=== PATIENT | male | born 1980 | race Caucasian/White ===

== ENCOUNTER 2017-05-20 12:34 | Emergency (ER) | payer MEDICAID, SELFPAY ==
[2017-05-20 13:37] VITALS: BP 174/94; PULSE 68; RESP 20; TEMP 36.6; O2SAT 99; BMI 29.8
--- NOTE | 2017-05-20 13:42 | HMH.EDUTC ---
[facility] [place] Disposition Clinical Impression: Cellulitis of axilla, left Disposition: Home, Self-Care Condition on Discharge: Good Instructions: DI for Cellulitis -- Adult Additional Instructions: * Start antibiotic(s) immediately and be sure to take as ordered for the FULL length of time although you should start to see improvement over the next 24-48 hours. * Monitor closely. Outlined redness so that you can monitor easier. FU immediately for new or worsening symptoms ( including but not limited to redness, swelling, red streaking, fever, chills). * Warm compresses 15 min 3-4 times a day * never squeeze or pop these on your own. Seek immediate medical attention next time these occur. * Monitor Temp. Seek treatment if fever develops. * For pain/inflammation: Tylenol every 4 hours as needed no more then 5 times a day or 4000mg in 24 hours and/or ibuprofen every 6 hours as needed no more then 3200mg in 24 hours (as long as your primary care doctor has told you that it is ok to take both) for aches/pain. Prescriptions: Sulfamethoxazole/Trimethoprim [Bactrim DS tablet] 1 each PO BID #20 tab Referrals: Jonas James MD [Primary Care Provider] - ( FU immediately for new or worsening symptoms ( including but not limited to redness, swelling, red streaking, fever, chills) or if not resolved with antibiotic) Time of Disposition: 14:04 Medical Decision Making - Jcarlos Inquiry Pt receiving controlled substance: No Vital Signs: 05/20/17 13:37 05/20/17 14:05 Temperature 97.9 F 97.9 F Temperature Source Temporal Artery Scan Temporal Artery Scan Pulse Rate 68 Pulse Rate [Brachial] 68 Respiratory Rate 20 20 Blood Pressure 174/94 Blood Pressure [Right Arm] 174/94 Blood Pressure Mean [Right Arm] 120 Blood Pressure Source [Right Arm] Automatic Cuff Blood Pressure Position Sitting Blood Pressure Position [Right Arm] Sitting 02 Sat by Pulse Oximetry 99 [facility] [place] HPI - General Stated complaint: knot under left arm Time Seen by Provider: 05/20/17 13:42 Mode of Arrival: Ambulatory Source of Information: Patient Limitations: No Limitations Description of Symptoms (Recalled from Triage Doc. by RN): FEELS A KNOT ONT HE LEFT SIDE OF NECK THAT IS SORE AND TENDER FOR 4 DAYS HEENT Symptoms (Recalled from RN notes): Yes Resp Symptoms (Recalled from RN notes): No Skin Symptoms (Recalled from RN notes): No MS Symptoms (Recalled from RN notes): No Functional Status (Recalled from RN notes): NA - History of Present Illness Provider Complaint: c/o red sore left axilla. First noticed weeks ago . Looked like a pimple. Squeezed it. Thick unknown color drainage. Didn't think anything else of it until 4 days, mild tenderness. Over the last 4 days, more red and more tender. no swelling or drainage. No fever, aches, chills. No other treatment. - Related Data Previous Rx's Medication Instructions Recorded Sulfamethoxazole/Trimethoprim 1 each PO BID #20 tab 05/20/17 [Bactrim DS tablet] - Worker's Comp Is this a Worker's Comp case?: No [facility] History I have reviewed the patient's past medical history: Yes (denies PMHx) Medical History: Denies:: Diabetes Mellitus Type 1, Diabetes Mellitus Type 2, Hypertension Laterality Cases: Right: Other (wrist, screw) - Social History Alcohol Intake: never - Psychiatric History Expresses thoughts of harming self/others: None Suicide Plan Description: No Plan ROS Obtained: Yes Systems reviewed as appropriate & no additional complaints - Constitutional Constitutional: Reports as per HPI, Denies body ache, Denies chills, Denies fatigue, Denies fever(s), Denies poor appetite - Respiratory Respiratory: No dyspnea - Gastrointestinal Gastrointestingal: Denies: nausea, vomiting - Musculoskeletal Musculoskeletal: Denies joint pain, Denies limited range of motion, Denies muscle weakness, Denies radiating pain into limb, Denies stiffness - Integumentary/Breasts Skin/Breast: Reports as per HP
--- NOTE | 2017-05-20 14:00 | ED_ITS ---
[facility] [place] Clinical Impression: Cellulitis of axilla, left Disposition: Home, Self-Care Condition on Discharge: Good Instructions: DI for Cellulitis -- Adult Additional Instructions: * Start antibiotic(s) immediately and be sure to take as ordered for the FULL length of time although you should start to see improvement over the next 24-48 hours. * Monitor closely. Outlined redness so that you can monitor easier. FU immediately for new or worsening symptoms ( including but not limited to redness , swelling, red streaking, fever, chills). * Warm compresses 15 min 3-4 times a day * never squeeze or pop these on your own. Seek immediate medical attention next time these occur. * Monitor Temp. Seek treatment if fever develops. * For pain/inflammation: Tylenol every 4 hours as needed no more then 5 times a day or 4000mg in 24 hours and/or ibuprofen every 6 hours as needed no more then 3200mg in 24 hours (as long as your primary care doctor has told you that it is ok to take both) for aches/pain. Prescriptions: Sulfamethoxazole/Trimethoprim [Bactrim DS tablet] 1 each PO BID #20 tab Referrals: Jonas James MD [Primary Care Provider] - ( FU immediately for new or worsening symptoms ( including but not limited to redness, swelling, red streaking, fever, chills) or if not resolved with antibiotic) Time of Disposition: 14:04 Medical Decision Making - Jcarlos Inquiry Pt receiving controlled substance: No Vital Signs: 05/20/17 13:37 05/20/17 14:05 Temperature 97.9 F 97.9 F Temperature Source Temporal Artery Scan Temporal Artery Scan Pulse Rate 68 Pulse Rate [Brachial] 68 Respiratory Rate 20 20 Blood Pressure 174/94 Blood Pressure [Right Arm] 174/94 Blood Pressure Mean [Right Arm] 120 Blood Pressure Source [Right Arm] Automatic Cuff Blood Pressure Position Sitting Blood Pressure Position [Right Arm] Sitting 02 Sat by Pulse Oximetry 99 [facility] [place] - General Stated complaint: knot under left arm Time Seen by Provider: 05/20/17 13:42 Mode of Arrival: Ambulatory Source of Information: Patient Limitations: No Limitations Description of Symptoms (Recalled from Triage Doc. by RN): FEELS A KNOT ONT HE LEFT SIDE OF NECK THAT IS SORE AND TENDER FOR 4 DAYS HEENT Symptoms (Recalled from RN notes): Yes Resp Symptoms (Recalled from RN notes): No Skin Symptoms (Recalled from RN notes): No MS Symptoms (Recalled from RN notes): No Functional Status (Recalled from RN notes): NA - History of Present Illness Provider Complaint: c/o red sore left axilla. First noticed weeks ago . Looked like a pimple. Squeezed it. Thick unknown color drainage. Didn't think anything else of it until 4 days, mild tenderness. Over the last 4 days, more red and more tender. no swelling or drainage. No fever, aches, chills. No other treatment. - Related Data Previous Rx's Medication Instructions Recorded Sulfamethoxazole/Trimethoprim 1 each PO BID #20 tab 05/20/17 [Bactrim DS tablet] - Worker's Comp Is this a Worker's Comp case?: No [facility] History I have reviewed the patient's past medical history: Yes (denies PMHx) Medical History: Denies:: Diabetes Mellitus Type 1, Diabetes Mellitus Type 2, Hypertension Laterality Cases: Right: Other (wrist, screw) - Social History Alcohol Intake: never - Psychiatric History Expresses thoughts of harming self/others: None Suicide Plan Description: No Plan
[2017-05-20 14:05] VITALS: BP 174/94; PULSE 68; RESP 20; TEMP 36.6; O2SAT 99
== END 2017-05-20 14:06 | disposition home or self-care (01) ==
PROVIDERS: Emergency Provider Nurse Practitioner Family; Family Provider Family Medicine; PCP Family Medicine
DX: L03.112 Cellulitis of left axilla (principal)
CPT/HCPCS: 99201

== ENCOUNTER → 2020-11-01 18:29 | Outpatient (CLI) | payer OTHER, SELFPAY | PROVIDERS: PCP Internal Medicine Adolescent Medicine; Visit Provider Internal Medicine Adolescent Medicine | DX: G47.33 Obstructive sleep apnea (adult) (pediatric) (principal); R40.0 Somnolence; E66.9 Obesity, unspecified; Z68.31 Body mass index [BMI] 31.0-31.9, adult; G47.9 Sleep disorder, unspecified | CPT/HCPCS: 95806 ==

== ENCOUNTER → 2020-11-25 12:00 | Outpatient (CLI) | payer OTHER, SELFPAY | PROVIDERS: Visit Provider Specialist | DX: R40.0 Somnolence (principal); Z82.0 Family history of epilepsy and other diseases of the nervous system | CPT/HCPCS: 36415 ==

== ENCOUNTER 2020-12-16 17:44 | Emergency (ER) | payer OTHER, SELFPAY ==
[2020-12-16 17:56] VITALS: BP 176/92; PULSE 80; RESP 16; TEMP 37.2; O2SAT 98; BMI 32.3
--- NOTE | 2020-12-16 18:04 | HMH.EDEYEP ---
ED Disposition Clinical Impression: Corneal abrasion Qualifiers: Encounter type: initial encounter Laterality: right Qualified Code(s): S05.01XA - Injury of conjunctiva and corneal abrasion without foreign body, right eye, initial encounter Disposition: Home, Self-Care Condition on Discharge: Good Additional Instructions: Please follow-up with your primary care doctor in 3 days, please be erythromycin ointment 5 times a day while you are awake. This will help prevent infection in your eye. If you are having increased pain with moving your eye, changes in vision, increased irritation or other concerns please follow-up with your primary care doctor or return to the emergency department earlier. Referrals: Holden Meyer MD [Primary Care Provider] - - Critical Care Critical Care Time: No Attestation: On 12/16/20, the high probability of a clinically significant, sudden or life threatening deterioration of the following system(s) required my full and direct attention, intervention and personal management. The time I documented below is in addition to time spent performing reported procedures but includes the following listed in this critical care notation. Medical Decision Making - Medical Records Medical records reviewed: Yes: I reviewed the patient's medical records. - Jcarlos Inquiry Pt receiving controlled substance: No Vital Signs: 12/16/20 17:56 12/16/20 18:36 Temperature 98.9 F 98.9 F Temperature Source Oral Pulse Rate 80 Pulse Rate [Left Radial] 80 Respiratory Rate 16 16 Blood Pressure 176/92 H Blood Pressure [Right Arm] 176/92 H Blood Pressure Mean [Right Arm] 120 Blood Pressure Source [Right Arm] Automatic Cuff Blood Pressure Position [Right Arm] Sitting 02 Sat by Pulse Oximetry 98 Oxygen Delivery Method Room Air Room Air Orders (Tests/Meds): ED MEDICATIONS Discontinued Medications Generic Name Dose Route Start Last Admin Trade Name Freq PRN Reason Stop Dose Admin Erythromycin 0.5 gm 12/16/20 18:03 12/16/20 18:12 Erythromycin Base 1 Gm Oint...G. OP 12/16/20 18:04 0.5 gm ONCE ONE Administration Tetanus/Reduced Diphtheria/Acell Pertussis 0.5 ml 12/16/20 18:03 12/16/20 18:09 Tet/Diphth/Pert-Adult 0.5ml Syringe IM 12/16/20 18:04 0.5 ml .ONCE ONE Administration Medical Decision Narrative: Patient is a 40-year-old male presented emergency department chief complaint of right eye pain after a metallic foreign body. Diagnosis includes foreign body, corneal abrasion, corneal laceration, open globe, keratitis among others given the patient did not know his last tetanus shot, patient tetanus was updated, patient was given fluorescein dye into his right eye, patient did have signs consistent with an abrasion in the lower hemisphere of the eye, no obvious laceration, no open globe. Physical exam findings consistent with a small corneal abrasion, no foreign body was visualized although eyelid was stained with foreseen, then flushed sufficiently. Patient was given erythromycin ointment to place in his eye 5 times a day for the next 5 days. Eye Problem HPI - General Chief complaint: Eye Problems Stated complaint: AO 1017 FB in R eye Time Seen by Provider: 12/16/20 18:15 Mode of Arrival: Ambulatory Limitations: No Limitations Description of Symptoms (Recalled from ER Triage Doc. by RN): c/o irritation in his right eye after changing some truck runners and shaving the bolts off yesterday - History of Present Illness HPI Narrative: Patient states that he was working on a car, when he believes a piece of metal flew up and hit him in his right eye. This occurred yesterday and since then it has felt irritated, he does not scrub it is particularly painful. He denies any blurry vision, any changes in his vision, any difficulty to move his eyes from side to side although he does notice a strange almost irritating feeling. He is denying any other acute medical problems, fevers, c
[2020-12-16 18:36] VITALS: BP 176/92; PULSE 80; RESP 16; TEMP 37.2; O2SAT 98
== END 2020-12-16 18:37 | disposition home or self-care (01) ==
PROVIDERS: Emergency Provider Emergency Medicine; PCP Internal Medicine Adolescent Medicine
DX: S05.01XA Injury of conjunctiva and corneal abrasion without foreign body, right eye, initial encounter (principal); K21.9 Gastro-esophageal reflux disease without esophagitis; W22.8XXA Striking against or struck by other objects, initial encounter; Y92.89 Other specified places as the place of occurrence of the external cause; Z23 Encounter for immunization
CPT/HCPCS: 90715; 99281

== ENCOUNTER → 2021-02-18 12:44 | Outpatient (CLI) | payer OTHER, SELFPAY ==
[2021-02-18 13:10] LABS: Basophils # 0.1 K/mm3 (0-0.2); Basophils % 1.2 % (0.1-2.0); Eosinophils # 0.1 K/mm3 (0.0-0.4); Eosinophils % 1.1 % (0.1-12.0); Hematocrit 46.5 % (42.0-52.0); Hemoglobin 15.5 g/dL (14.1-18.0); Lymphocytes # 1.4 K/mm3 (0.7-4.5); Lymphocytes % 29.4 % (10-50); Mean Corpuscular HGB Conc 33.4 g/dL (31.8-35.4); Mean Corpuscular Hemoglobin 30.9 pg (27.0-31.2); Mean Corpuscular Volume 92.4 fl (80-94); Mean Platelet Volume 8.4 fl (7.4-10.4); Monocytes # 0.5 K/mm3 (0.1-1.0); Monocytes % 10.9 % (1.7-9.3); Neutrophils # 2.8 K/mm3 (1.8-7.8); Neutrophils % 57.4 % (37.0-80.0); Platelet Count 260 K/mm3 (142-424); Red Blood Count 5.03 M/mm3 (4.60-6.20); Red Cell Distribution Width 13.9 % (11.5-17.5); White Blood Count 4.8 K/mm3 (4.8-10.8)
[2021-02-18 14:30] LABS: Alanine Aminotransferase 98 U/L (12-78); Albumin Level 4.1 g/dl (3.5-5.0); Albumin/Globulin Ratio 1.9 (1.1-1.8); Alkaline Phosphatase 63 U/L (38-126); Anion Gap 8.5 mEq/L (5-15); Aspartate Amino Transferase 39 U/L (17-59); Blood Urea Nitrogen 15 mg/dl (9-20); Calcium 9.5 mg/dl (8.4-10.2); Carbon Dioxide 33 mmol/L (22.0-30.0); Chloride 97 mmol/L (98-107); Estimated Glomerular Filt Rate 82 ml/min (>60); GFR (African American) 100 ML/MIN (>60); Globulin 2.2 g/dL (1.3-3.2); Glucose 100 mg/dl (74-100); Potassium 4.5 mmoL/L (3.5-5.1); Sodium 134 mmol/L (136-145); Total Protein,Serum 6.3 g/dl (6.3-8.2)
== END ==
PROVIDERS: PCP Internal Medicine Adolescent Medicine; Visit Provider Nurse Practitioner Family
DX: U07.1 COVID-19 (principal)
CPT/HCPCS: 80053; 85025

== ENCOUNTER → 2021-03-13 12:37 | Outpatient (CLI) | payer OTHER, SELFPAY ==
[2021-03-13 14:25] LABS: Alanine Aminotransferase 68 U/L (12-78); Albumin Level 4.6 g/dl (3.5-5.0); Albumin/Globulin Ratio 2.4 (1.1-1.8); Alkaline Phosphatase 45 U/L (38-126); Anion Gap 10.8 mEq/L (5-15); Aspartate Amino Transferase 33 U/L (17-59); Bilirubin,Total 1.1 mg/dl (0.2-1.3); Blood Urea Nitrogen 22 mg/dl (9-20); Calcium 9.6 mg/dl (8.4-10.2); Carbon Dioxide 31 mmol/L (22.0-30.0); Chloride 101 mmol/L (98-107); Estimated Glomerular Filt Rate 74 ml/min (>60); GFR (African American) 89 ML/MIN (>60); Globulin 1.9 g/dL (1.3-3.2); Glucose 120 mg/dl (74-100); Potassium 3.8 mmoL/L (3.5-5.1); Sodium 139 mmol/L (136-145); Total Protein,Serum 6.5 g/dl (6.3-8.2)
[2021-03-14 12:20] LABS: Hep A Ab, IgM Negative (Negative); Hepatitis B Core Antibody IgM Negative (Negative); Hepatitis B Surface Antigen Negative (Negative); Hepatitis C Antibody <0.1 s/co ratio (0.0-0.9)
== END ==
PROVIDERS: PCP Internal Medicine Adolescent Medicine; Visit Provider Nurse Practitioner Family
DX: R74.8 Abnormal levels of other serum enzymes (principal)
CPT/HCPCS: 36415; 80053; 80074

== ENCOUNTER 2021-06-01 09:20 | Emergency (ER) | payer OTHER, SELFPAY ==
[2021-06-01 09:20] VITALS: BP 177/95; PULSE 76; RESP 18; TEMP 36.9; O2SAT 96; BMI 29.8
[2021-06-01 09:48] LABS: UTC Influenza A Antigen Negative (Negative)
[2021-06-01 09:49] LABS: UTC Influenza B Antigen Negative (Negative)
--- NOTE | 2021-06-01 09:53 | HMH.EDUTC ---
[facility] [place] Impression: Maxillary sinusitis, acute Qualifiers: Recurrence: non-recurrent Qualified Code(s): J01.00 - Acute maxillary sinusitis, unspecified Disposition: Home, Self-Care Condition on Discharge: Good Instructions: DI for Sinusitis Additional Instructions: Start antibiotic patient to take as ordered for a full length of time even if you feel better. Sinus infections do not get better overnight. It may take 2-3 days to notice much improvement so be sure to use conservative measures as discussed for symptoms. Flonase 1 spray each nostril daily to help with nasal congestion, sinus and ear pressure/information Increase fluids Humidifier/vaporizer as needed Tylenol and ibuprofen as needed for fever or pain. If symptoms do not improve or get worse return or be seen in the ER Follow-up with primary care this week Prescriptions: Fluticasone Propionate [Flonase 50mcg nasal spray 16gm] 1 spr NS DAILY #9.9 ml Prescription Printed Azithromycin [Zithromax 250mg tab] 250 mg PO DIRECTED #6 tab Prescription Printed Referrals: Holden Meyer MD [Primary Care Provider] - Time of Disposition: 09:56 Medical Decision Making - Jcarlos Inquiry Pt receiving controlled substance: No Vital Signs: 06/01/21 09:20 Temperature 98.5 F Temperature Source Oral Pulse Rate [Right Brachial] 76 Respiratory Rate 18 Blood Pressure [Right Arm] 177/95 H Blood Pressure Mean [Right Arm] 122 Blood Pressure Source [Right Arm] Automatic Cuff Blood Pressure Position [Right Arm] Sitting 02 Sat by Pulse Oximetry 96 Oxygen Delivery Method Room Air - Lab Data Lab Results 06/01/21 09:30: Influenza Type A Ag Negative, Influenza Type B Ag Negative [facility] [place] - General Chief complaint: [facility] Stated complaint: sore throat, cough, runny nose, congestion Time Seen by Provider: 06/01/21 09:53 Mode of Arrival: Ambulatory Source of Information: Patient Limitations: No Limitations Description of Symptoms (Recalled from Triage Doc. by RN): PATIENT C/O COUGH AND DRAINAGE HEENT Symptoms (Recalled from RN notes): Yes Resp Symptoms (Recalled from RN notes): Yes Skin Symptoms (Recalled from RN notes): No MS Symptoms (Recalled from RN notes): No Functional Status (Recalled from RN notes): WNL - History of Present Illness Provider Complaint: 41 yr old male presents for coughing and thick green nasal drainage since . - Related Data Home Medications Medication Instructions Recorded Confirmed omeprazole 40 mg capsule,delayed 40 mg PO DAILY cap 11/25/20 11/25/20 release Previous Rx's Medication Instructions Recorded Azithromycin [Zithromax 250mg 250 mg PO DIRECTED #6 tab 06/01/21 tab] Fluticasone Propionate [Flonase 1 spr NS DAILY #9.9 ml 06/01/21 50mcg nasal spray 16gm] Allergies Allergy/AdvReac Type Severity Reaction Status Date / Time No Known Allergies Allergy Verified 11/25/20 10:25 - Worker's Comp Is this a Worker's Comp case?: No [facility] History - Hepatitis A Screen Drug use history?: No High risk sexual behaviors?: No History of sexually transmitted infection?: No Currently employed?: No Childcare worker?: No Do you have indoor plumbing?: Yes Do you have electricity?: Yes Attestation statement:: This patient has been screened for Hepatitis A risk factors. I have reviewed the patient's past medical history: Yes Medical History: Reports:: Gastroesophageal Reflux Disease(GERD) Denies:: Diabetes Mellitus Type 1, Diabetes Mellitus Type 2, Hypertension Laterality Cases: Right: Other Other Surgeries: Yes: No Previous Surgery Amputation: No Fractures: Yes Comment: rt wrist fx - Social History Smoking Status: Never smoker Alcohol Intake: never Substance Use Type: denies use Occupational Status: other, employed Housing: house Household Members: spouse, children Family Hx:: Cancer ROS Obtained: Yes Systems reviewed as appropriate & no add
[2021-06-01 10:00] VITALS: BP 177/95; PULSE 76; RESP 18; TEMP 36.9; O2SAT 96
== END 2021-06-01 10:03 | disposition home or self-care (01) ==
PROVIDERS: Emergency Provider Nurse Practitioner Family; PCP Internal Medicine Adolescent Medicine
DX: J01.00 Acute maxillary sinusitis, unspecified (principal); K21.9 Gastro-esophageal reflux disease without esophagitis; Z79.51 Long term (current) use of inhaled steroids; Z79.899 Other long term (current) drug therapy
CPT/HCPCS: 87804; 99213; G0463

== ENCOUNTER 2022-02-01 10:05 | Emergency (ER) | payer BC, OTHER, SELFPAY ==
[2022-02-01 10:50] VITALS: BP 154/87; PULSE 89; RESP 16; TEMP 37.6; O2SAT 98; BMI 34.3
--- NOTE | 2022-02-01 10:51 | EXP.UTC ---
Discharge Plan Disposition Patient Disposition: Home, Self-Care Condition: Good Prescriptions Prescriptions: New benzonatate [benzonatate] 100 mg capsule 100 mg PO TIDP PRN (Reason: Cough) Qty: 30 0RF oseltamivir [Tamiflu] 75 mg capsule 75 mg PO BID Qty: 10 0RF prednisone [prednisone] 20 mg tablet 20 mg PO DAILY 4 Days Qty: 4 0RF Activity Restrictions/Add. Instructions Additional Instructions/Restrictions: Drink plenty of fluids. Take tylenol or ibuprofen for pain or fever. Take the medications as directed. Follow up with your regular doctor. GO TO THE ER FOR ANY WORSENING SYMPTOMS Clinical Impressions Clinical Impression: Influenza A Stand Alone Forms Stand Alone Forms: Work/School Release Instructions Patient Instructions: DI for Influenza -- Adult, Oseltamivir Discharge ED Provider: Nehemiah Hernandez [facility] [place] HPI General Stated complaint: Bodyaches,Chills,Headaches Time Seen by Provider: 02/01/22 10:51 History of Present Illness Provider Complaint: He states that for the past 2 days he has had fever, chills, body aches, and a cough. Related Data Previous Rx's Medication Instructions Recorded benzonatate 100 mg capsule 100 mg PO TIDP PRN Cough #30 caps 02/01/22 oseltamivir 75 mg capsule (Tamiflu) 75 mg PO BID #10 caps 02/01/22 prednisone 20 mg tablet 20 mg PO DAILY 4 days #4 tabs 02/01/22 Allergies Allergy/AdvReac Type Severity Reaction Status Date / Time No Known Allergies Allergy Verified 02/01/22 10:52 [facility] Disclaimer: The information contained in this section may have been updated after the patient was seen, as this information can be updated by other users. Social History Smoking Status: Never smoker alcohol intake: never substance use type: denies use current occupational status: employed and other Travel in the last 8 weeks: None household members: spouse and children housing: house ROS Obtained: Yes All systems reviewed & no additional complaints except as documented Constitutional Constitutional: Reports chills and Reports fever(s) Eyes Eyes: Denies eye discharge ENT Ears, Nose, Mouth, and Throat: Reports as per HPI Cardiovascular Cardiovascular: Denies chest pain Respiratory Respiratory: Denies chest congestion and Reports cough Gastrointestinal Gastrointestingal: Reports nausea; Denies abdominal pain, constipation, cramping, diarrhea or vomiting Musculoskeletal Musculoskeletal: Denies arthralgias Integumentary/Breasts Skin/Breast: Denies rash Neurologic Neurologic: Denies paresthesias Physical Exam General General appearance: alert and in no apparent distress Head Head exam: atraumatic, normocephalic and normal inspection Eye Eye exam: Present normal appearance, PERRL and EOMI ENT ENT exam: Present normal exam, normal oropharynx, mucous membranes moist, TM's normal bilaterally and normal external ear exam Neck Neck exam: Present normal inspection, full ROM and trachea midline; Absent meningismus or lymphadenopathy Chest Chest inspection: Present normal inspection and symmetric chest wall rise; Absent tenderness Respiratory Respiratory exam: Present normal lung sounds bilaterally; Absent respiratory distress Cardiovascular Cardiovascular exam: Present regular rate and normal rhythm; Absent JVD Abdominal Exam Abdominal exam: Present soft and normal bowel sounds; Absent distention, tenderness or guarding Extremities Exam Extremities exam: Present normal inspection, full ROM and normal capillary refill; Absent calf tenderness Back Exam Back exam: Present normal inspection; Absent tenderness Neurological Exam Neurological exam: Present alert and oriented X3 Psychiatric Psychiatric exam: Present normal affect and normal mood Skin Skin exam: Present warm, dry, intact and normal color Lymphatic Lymphatic Findings: no adenopathy Medical Decision Making Medical Records Medi
[2022-02-01 10:52] LABS: UTC Influenza A Antigen Positive (Negative); UTC Influenza B Antigen Negative (Negative)
[2022-02-01 11:45] VITALS: BP 154/87; PULSE 89; RESP 16; TEMP 37.6
== END 2022-02-01 11:47 | disposition home or self-care (01) ==
PROVIDERS: Emergency Provider Nurse Practitioner Family
DX: J10.1 Influenza due to other identified influenza virus with other respiratory manifestations (principal)
CPT/HCPCS: 87804; 99212; G0463

== ENCOUNTER 2022-10-30 16:38 | Emergency (ER) | payer OTHER, SELFPAY ==
[2022-10-30 16:40] VITALS: BP 156/100; PULSE 68; RESP 19; TEMP 36.8; O2SAT 98; BMI 33.0
[2022-10-30 16:44] VITALS: BP 164/134; PULSE 69; O2SAT 96
[2022-10-30 17:19] VITALS: BP 177/89; PULSE 63; O2SAT 95
--- NOTE | 2022-10-30 17:19 | PC.NURSE ---
Rounded on pt. No needs voiced at this time.
--- NOTE | 2022-10-30 17:25 | HMH.EDGENADL ---
Discharge Plan Disposition Patient Disposition: Home, Self-Care Chief Complaint: Skin/Abscess/Foreign Body Prescriptions Prescriptions: No Action benzonatate [benzonatate] 100 mg capsule 100 mg PO TIDP PRN (Reason: Cough) Qty: 30 0RF oseltamivir [Tamiflu] 75 mg capsule 75 mg PO BID Qty: 10 0RF prednisone [prednisone] 20 mg tablet 20 mg PO DAILY 4 Days Qty: 4 0RF Referrals Follow up/Referrals: Provider,Referral, MD [Primary Care Provider] - See instructions Activity Restrictions/Add. Instructions Additional Instructions/Restrictions: Call your family doctor to establish care for this visit to the emergency department and schedule follow-up as needed. If you have any worsening of your condition or any other concerning signs or symptoms, return to the emergency department or your primary care doctor for further evaluation. Clinical Impressions Clinical Impression: Foreign body of hand, left Qualifiers: Encounter type: initial encounter Qualified Code(s): S60.552A - Superficial foreign body of left hand, initial encounter Instructions Patient Instructions: DI for Skin Abscess Discharge ED Provider: Jerald Guzman General Adult HPI General Chief complaint: Skin/Abscess/Foreign Body Stated complaint: poss piece of metal in LT middle finger Time Seen by Provider: 10/30/22 16:50 Mode of Arrival: Family Vehicle Source of Information: Patient Limitations: No Limitations Description of Symptoms (Recalled from ER Triage Doc. by RN): Pt c/o possible piece of metal to the pad of his middle finger on his left hand. States he is not UTD on tetanus vaccine. Reports this happened at work about 2-3 days ago. History of Present Illness HPI narrative: Is a 42-year-old male presenting with foreign body in his finger. Patient states that he was grinding metal at work, had a small metal foreign body in the left middle finger 2 days prior to arrival. No pain in the absence of applying pressure, no surrounding redness, fevers or chills. Patient's last tetanus shot less than a year ago. Related Data Previous Rx's Medication Instructions Recorded benzonatate 100 mg capsule 100 mg PO TIDP PRN Cough #30 caps 02/01/22 oseltamivir 75 mg capsule (Tamiflu) 75 mg PO BID #10 caps 02/01/22 prednisone 20 mg tablet 20 mg PO DAILY 4 days #4 tabs 02/01/22 Allergies Allergy/AdvReac Type Severity Reaction Status Date / Time No Known Allergies Allergy Verified 02/01/22 10:52 [facility] Disclaimer: The information contained in this section may have been updated after the patient was seen, as this information can be updated by other users. Social History Smoking Status: Never smoker alcohol intake: never substance use type: denies use current occupational status: employed and other Travel in the last 8 weeks: None household members: spouse and children housing: house ROS Obtained: Yes All systems reviewed & no additional complaints except as documented Physical Exam General General appearance: alert, in no apparent distress and other ( ) Head Head exam: atraumatic and normocephalic Eye Eye exam: Present normal appearance, PERRL and EOMI ENT ENT exam: Present mucous membranes moist Neck Neck exam: Present normal inspection, full ROM and trachea midline Respiratory Respiratory exam: Absent respiratory distress, wheezes, stridor, accessory muscle use or prolonged expiratory phase Cardiovascular Cardiovascular exam: Present regular rate and normal rhythm Abdominal Exam Abdominal exam: Present soft; Absent distention, tenderness, guarding, rebound, rigidity or normal bowel sounds Extremities Exam Extremities exam: Present other (Small, subcentimeter metallic foreign body dorsal aspect left middle finger. No surrounding signs of infection); Absent edema Neurological Exam Neurological exam: Present alert, oriented X3, CN II-XII intact and normal gait; Absent
[2022-10-30 17:31] VITALS: BP 162/74; PULSE 66; O2SAT 95
[2022-10-30 18:13] VITALS: BP 164/87; PULSE 64; RESP 17; TEMP 36.7; O2SAT 98
== END 2022-10-30 18:15 | disposition home or self-care (01) ==
PROVIDERS: Emergency Provider Emergency Medicine
DX: S60.552A Superficial foreign body of left hand, initial encounter (principal); W45.8XXA Other foreign body or object entering through skin, initial encounter; Y99.0 Civilian activity done for income or pay
CPT/HCPCS: 99282

== ENCOUNTER 2022-11-05 15:35 | Emergency (ER) | payer OTHER, SELFPAY ==
[2022-11-05 15:50] VITALS: BP 193/113; PULSE 70; RESP 21; TEMP 36.8; O2SAT 97; BMI 33.0
[2022-11-05 16:02] VITALS: BP 168/96; PULSE 70; RESP 21; TEMP 36.8; O2SAT 97
--- NOTE | 2022-11-05 16:03 | EXP.UTC ---
Discharge Plan Disposition Patient Disposition: Home, Self-Care Condition: Good Prescriptions Prescriptions: New benzonatate 100 mg capsule 100 mg PO TID PRN (Reason: cough) Qty: 30 0RF Referrals Follow up/Referrals: Provider,Referral, MD [Primary Care Provider] - See instructions Activity Restrictions/Add. Instructions Additional Instructions/Restrictions: Follow up with your Family Doctor for re-evaluation of your blood pressure *Monitor Temp, Over the counter Motrin or Tylenol as directed/as needed Tylenol every 4 hours and Motrin every 6 hours (as long as your family doctor has told you that you can take it) for fever or pain. and straight to ER if unable to lower temp less than 101.0 after medication given *Warm salt water gargles may help to soothe the throat *Throat Lozenges? *Warm fluids like tea with honey may help to soothe the throat? *Sleep elevated *Humidifier/Vaporizer Follow up IMMEDIATELY for new or worsening symptoms or no Noticeable improvement over the next 48-72 hours. 911 for difficulty breathing or swallowing You were tested for today for COVID19 your test result should be back in the next 24 hours you may check for your results on the [facility] My Health Portal you will need to Quarantine until your test results are neg or if they was Positive then Quarantine for 5 days Clinical Impressions Clinical Impression: Exposure to COVID-19 virus Stand Alone Forms Stand Alone Forms: Work/School Release Instructions Patient Instructions: Cough, DI for Headache, DI for COVID-19 (Suspected or Confirmed ), Preventing the Spread of Coronavirus Discharge Instructions Discharge ED Provider: Kimberley Henry [facility] HPI General Stated complaint: covid test [facility] Cough Mode of Arrival: Ambulatory Source of Information: Patient Limitations: No Limitations Time Seen by Provider: 11/05/22 16:03 Description of Symptoms (Recalled from Triage Doc. by RN): PATIENT C/O HEADACHE AND COUGH, RECENTLY EXPOSED TO COVID HEENT Symptoms (Recalled from RN notes): Yes Resp Symptoms (Recalled from RN notes): Yes Skin Symptoms (Recalled from RN notes): No MS Symptoms (Recalled from RN notes): No Functional Status (Recalled from RN notes): WNL History of Present Illness Provider Complaint: Patient state that he was recently around coworker that tested positive for COVID States that they carpool together and now he is starting to feel bad States that he has been having a headache, nagging cough, feeling achy and chills so he came in to get tested for COVID Related Data Previous Rx's Medication Instructions Recorded benzonatate 100 mg capsule 100 mg PO TID PRN cough #30 caps 11/05/22 Allergies Allergy/AdvReac Type Severity Reaction Status Date / Time No Known Allergies Allergy Verified 02/01/22 10:52 Worker's Comp Is this a Worker's Comp case?: No [facility] Disclaimer: The information contained in this section may have been updated after the patient was seen, as this information can be updated by other users. Social History Smoking Status: Never smoker alcohol intake: never substance use type: denies use current occupational status: employed and other Travel in the last 8 weeks: None household members: spouse and children housing: house ROS Obtained: Yes All systems reviewed & no additional complaints except as documented and Yes Systems reviewed as appropriate & no additional complaints except as documented Constitutional Constitutional: Reports system reviewed and no additional complaints, except as documented, Reports as per HPI, Reports body ache, Reports chills and Reports headache(s) ENT Ears, Nose, Mouth, and Throat: Reports system reviewed and no additional complaints, except as documented, Reports as per HPI and Reports headache(s) Cardiovascular Cardiovascular: Reports system reviewed and no jamie
== END 2022-11-05 16:35 | disposition home or self-care (01) ==
PROVIDERS: Emergency Provider Nurse Practitioner
DX: R51.9 Headache, unspecified (principal); R05.9 Cough, unspecified; Z20.822 Contact with and (suspected) exposure to COVID-19
CPT/HCPCS: 99212; 99214; G0463

== ENCOUNTER 2023-03-21 13:17 | Emergency (ER) | payer OTHER, SELFPAY ==
[2023-03-21 14:45] VITALS: BP 130/91; PULSE 101; RESP 21; TEMP 37.5; O2SAT 100; BMI 32.3
[2023-03-21 15:09] LABS: UTC Influenza A Antigen Negative (Negative); UTC Strep Screen (Rapid) Negative (Negative)
[2023-03-21 15:10] LABS: UTC Influenza B Antigen Positive (Negative)
--- NOTE | 2023-03-21 15:17 | ED_ITS ---
Discharge Plan Disposition Patient Disposition: Home, Self-Care Condition: Good Prescriptions Prescriptions: New benzonatate 100 mg capsule 100 mg PO TID PRN (Reason: cough) Qty: 30 0RF Referrals Follow up/Referrals: Holden Meyer MD [Primary Care Provider] - See instructions Activity Restrictions/Add. Instructions Additional Instructions/Restrictions: Over the counter Coricidin HBP may help with nasal congestion and not raise your blood pressure * Lots of rest * Increase Fluids water, Gatorade, powerade, pedialyte,if /toddler/child * Alternate Tylenol and / or ibuprofen as discussed for fever, aches, chills Follow up IMMEDIATELY with your family doctor for new or worsening Symptoms OR no noticeable improvement over the next 48-72 hours, 911 for difficulty or breathing * You or your child area contagious until no fever, aches, chills for 24 hours with medication for symptoms * Help Prevent the spread of influenza: * ?Wash your hands often. Use soap and water. Wash your hands after you use the bathroom, change a child's diapers, or sneeze. Wash your hands before you prepare or eat food. Use gel hand cleanser that has 60% alcohol, when soap and water are not available. Do not touch your eyes, nose, or mouth unless you have washed your hands first. * Cover your mouth when you sneeze or cough. Cough into a tissue or the bend of your arm. If you use a tissue, throw it away immediately and wash your hands. * Clean shared items with a germ-killing venetian blind cleaner. Clean table surfaces, doorknobs, and light switches. Do not share towels, silverware, and dishes with people who are sick. Wash bed sheets, towels, silverware, and dishes with soap and water. * Wear a mask over your mouth and nose if you are sick. The face mask may help protect others from becoming infected with the flu. Wear the mask when in common areas of your home or if you seek care with a healthcare provider. * Stay away from others if you are sick. Stay at home until 24 hours after your fever and symptoms are gone. Clinical Impressions Clinical Impression: Influenza Stand Alone Forms Stand Alone Forms: Work/School Release Instructions Patient Instructions: Influenza Discharge ED Provider: Kimberley Henry [facility] HPI General Stated complaint: cough, headache, fever Mode of Arrival: Ambulatory Source of Information: Patient Limitations: No Limitations Time Seen by Provider: 03/21/23 15:17 Description of Symptoms (Recalled from Triage Doc. by RN): PATIENT C/O HEAD/SINUS PRESSURE, COUGH, BURNING THROAT, AND CONGESTION X 1 WEEK HEENT Symptoms (Recalled from RN notes): Yes Resp Symptoms (Recalled from RN notes): Yes Skin Symptoms (Recalled from RN notes): No MS Symptoms (Recalled from RN notes): No Functional Status (Recalled from RN notes): WNL History of Present Illness Provider Complaint: Patient states that he started feeling a little bad on and seen PCP on Wednesday with flu symptoms but his test was negative but yesterday he got to feeling worse with body aches, burning in his throat when he would cough and nasal congestion then last night into this morning he was having headache, and nasal congestion so he came in today to get checked felt like he may have the flu Related Data Previous Rx's Medication Instructions Recorded benzonatate 100 mg capsule 100 mg PO TID PRN cough #30 caps 03/21/23 Allergies Allergy/AdvReac Type Severity Reaction Status Date / Time No Known Allergies Allergy Verified 02/01/22 10:52 Worker's Comp Is this a Worker's Comp case?: No [facility] Disclaimer: The information contained in this section may have been updated after the patient was seen, as this information can be updated by other users. Medical History (Updated 03/21/23 @ 15:27 by Kimberley Henry APRN) Hypertension Social History Smoking Status: Never smoker alcohol intake: never substance use type: denies use current occupational status: employed and other Travel in the last 8 weeks: None household members: spouse and children housing: house ROS Obtained: Yes All systems reviewed & no additional complaints except as documented and Yes Systems reviewed as appropriate & no additional complaints except as documented Constitutional Constitutional: Reports system reviewed and no additional complaints, except as documented, Reports as per HPI, Reports body ache, Reports chills, Reports fever(s) and Reports headache(s) ENT Ears, Nose, Mouth, and Throat: Reports system reviewed and no additional complaints, except as documented, Reports as per HPI, Reports headache(s), Reports nasal congestion and Reports sore throat (burning in his throat with cough) Cardiovascular Cardiovascular: Reports system reviewed and no additional complaints, except as documented and Reports as per HPI Respiratory Respiratory: Reports system reviewed and no additional complaints, except as documented, Reports as per HPI, Denies shortness of breath, Reports cough and Denies wheezing Gastrointestinal Gastrointestingal: Reports system reviewed and no additional complaints, except as documented and as per HPI Neurologic Neurologic: Reports headache(s) Allergic/Immunologic Allergic/Immunologic: Denies wheezing Physical Exam General General appearance: alert and in no apparent distress ENT ENT exam: Present mucous membranes moist Expanded ENT Exam Nose exam: Absent sinus tenderness Throat exam: Present other (Pharyngeal erythema noted with PNd) Respiratory Respiratory exam: Present normal lung sounds bilaterally; Absent respiratory distress or wheezes Cardiovascular Cardiovascular exam: Present regular rate, normal rhythm and tachycardia Neurological Exam Neurological exam: Present alert, oriented X3 and normal gait Medical Decision Making Jcarlos Inquiry Pt receiving controlled substance: No Jcarlos was queried for this patient: No Vital Signs: 03/21/23 14:45 Temperature 99.5 F Temperature Source Oral Pulse Rate [Left Brachial] 101 H Respiratory Rate 21 Blood Pressure [Left Arm] 130/91 H Blood Pressure Mean [Left Arm] 104 Blood Pressure Source [Left Arm] Automatic Cuff Blood Pressure Position [Left Arm] Sitting 02 Sat by Pulse Oximetry 100 Oxygen Delivery Method Room Air Lab Data Lab results reviewed: Yes I reviewed the patient's lab results. Lab Results 03/21/23 15:08: Influenza Type A Ag Negative, Influenza Type B Ag Positive A, Strep Scn Rapid Clinic Negative Orders (Tests/Meds): ORDERS Category Date Time Status Strep Screen Confirmation Stat Micro 03/21/23 15:08 Received Medical Decision Narrative: discussed Tamiflu and patient declined
[2023-03-21 15:25] VITALS: BP 130/91; PULSE 101; RESP 21; TEMP 37.5; O2SAT 100
== END 2023-03-21 15:28 | disposition home or self-care (01) ==
PROVIDERS: Emergency Provider Nurse Practitioner; PCP Internal Medicine Adolescent Medicine
DX: J10.1 Influenza due to other identified influenza virus with other respiratory manifestations (principal); R51.9 Headache, unspecified; R50.9 Fever, unspecified; R05.9 Cough, unspecified; R07.0 Pain in throat; R09.81 Nasal congestion; M79.18 Myalgia, other site; I10 Essential (primary) hypertension
CPT/HCPCS: 87804; 87880; 99212; 99214; G0463

== ENCOUNTER 2023-03-30 16:15 | Outpatient (CLI) | payer OTHER, SELFPAY ==
--- NOTE | 2023-03-30 16:19 | XR_ITS ---
PROCEDURE INFORMATION: Exam: XR Chest Exam date and time: 03/30/2023 4:23 PM Age: 42 years old Clinical indication: Cough; Additional info: Acute bronchitis. Cough & SOA x 1 week. TECHNIQUE: Imaging protocol: Radiologic exam of the chest. Views: 2 views. Total images: 2 COMPARISON: No relevant prior studies available. FINDINGS: Lungs: Unremarkable. No consolidation. Pleural spaces: Unremarkable. No pleural effusion. No pneumothorax. Heart/Mediastinum: Unremarkable. No cardiomegaly. Bones/joints: Unremarkable. IMPRESSION: No acute findings.
== END 2023-03-30 23:59 ==
LOC: RAD 16:16
PROVIDERS: PCP Internal Medicine Adolescent Medicine; Visit Provider Physician Assistant
DX: J20.9 Acute bronchitis, unspecified (principal)
CPT/HCPCS: 71046

== ENCOUNTER 2023-11-26 09:20 | Emergency (ER) | payer BC, SELFPAY ==
[2023-11-26 09:30] VITALS: BP 140/75; PULSE 66; RESP 18; TEMP 36.8; O2SAT 98; BMI 33.3
[2023-11-26 09:45] VITALS: BP 140/75; PULSE 66; RESP 18; TEMP 36.8; O2SAT 98
--- NOTE | 2023-11-26 09:45 | EXP.UTC ---
Discharge Plan Disposition Patient Disposition: Home, Self-Care Condition: Good Prescriptions Prescriptions: No Action benzonatate 100 mg capsule 100 mg PO TID PRN (Reason: cough) Qty: 30 0RF Referrals Follow up/Referrals: Holden Meyer MD [Primary Care Provider] - See instructions Activity Restrictions/Add. Instructions Additional Instructions/Restrictions: Go straight to [facility] for further treatment and evaluation [address] [place] [address] Elias [phone] Further treatment by [facility] Clinical Impressions Clinical Impression: Foreign body in eye Qualifiers: Encounter type: initial encounter Laterality: right Qualified Code(s): T15.91XA - Foreign body on external eye, part unspecified, right eye, initial encounter Instructions Patient Instructions: DI for Foreign Body in the Eye Print Language Print Language: Nicarag[place] Discharge ED Provider: Kimberley Henry [facility] General Stated complaint: foreign body in right eye Time Seen by Provider: 11/26/23 09:48 History of Present Illness Provider Complaint: 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 Medical History (Updated 11/26/23 @ 09:48 by Kimberley Henry APRN) Hypertension Social History Smoking Status: Never smoker alcohol intake: never substance use type: denies use current occupational status: employed and other Travel in the last 8 weeks: None household members: spouse and children housing: house ROS Obtained: Yes All systems reviewed & no additional complaints except as documented and Yes Systems reviewed as appropriate & no additional complaints except as documented Constitutional Constitutional: Reports system reviewed and no additional complaints, except as documented and Reports as per HPI Eyes Eyes: Reports system reviewed and no additional complaints, except as documented, Reports as per HPI and Reports other (FB in right eye) ENT Ears, Nose, Mouth, and Throat: Reports system reviewed and no additional complaints, except as documented and Reports as per HPI Cardiovascular Cardiovascular: Reports system reviewed and no additional complaints, except as documented and Reports as per HPI Respiratory Respiratory: Reports system reviewed and no additional complaints, except as documented and Reports as per HPI Gastrointestinal Gastrointestingal: Reports system reviewed and no additional complaints, except as documented and as per HPI Physical Exam General General appearance: alert and in no apparent distress Eye Eye exam: Present other (redness and watering to right eye, sensative to light) Respiratory Respiratory exam: Present normal lung sounds bilaterally; Absent respiratory distress or wheezes Cardiovascular Cardiovascular exam: Present regular rate, normal rhythm and normal heart sounds Neurological Exam Neurological exam: Present alert, oriented X3 and normal gait Medical Decision Making Medical Records Screening: Per USPSTF and CDC recommendations, given the prevalence of disease in our region, it is our hospital?s policy to screen for HIV and viral Hepatitis for all patients aged 18 and over and those with ongoing risk factors. Jcarlos Inquiry Pt receiving controlled substance: No Jcarlos was queried for this patient: No Medical Decision Narrative: Discussed with patient about FB in eye would need to transfer to the ED for removal or he could be seen by [facility] and have exam and removal there in the office if they was able to get him in Called [facility] and they advised to send him down to the office and they would examine him and remove object and he agreed patient dc'd from the [facility] to go straight to [facility]
== END 2023-11-26 09:49 | disposition home or self-care (01) ==
PROVIDERS: Emergency Provider Nurse Practitioner; PCP Internal Medicine Adolescent Medicine
DX: T15.91XA Foreign body on external eye, part unspecified, right eye, initial encounter (principal); W44.E9XA Other non-magnetic metal objects entering into or through a natural orifice, initial encounter
CPT/HCPCS: 99212; 99213; G0463